=== PATIENT | female | born 1975 | race Caucasian/White ===

== ENCOUNTER 2017-09-10 05:15 | Emergency (ER) | payer OTHER ==
[~2017-09-10] VITALS: Ht 170.2 cm; Wt 83.9 kg
--- OUTSIDE RECORDS SUMMARY | ~2017-09-10 | XMS | Clinical Summary ---
Demographics + + + | Address | [address] | | | [place] [address] | + + + | Home Phone | | + + + | Preferred Language | Unknown | + + + | Marital Status | | + + + | Adventist Affiliation | Unknown | + + + | Race | Unknown | + + + | Ethnic Group | Unknown | + + + Author + + + | Author | [facility] | | | and [facility] | + + + | Organization | [facility] | | | and [facility] | + + + | Address | Unknown | + + + | Phone | Unavailable | + + + Support + + +---------+ + | Name | Relationship | Address | Phone | + + +---------+ + | Unkn,At Time Of | ECON | NA | | | Registration | | NA, | | + + +---------+ + Care Team Providers + +------+ + | Care Cable Tool Driller Name | Role | Phone | + +------+ + | No, Unknownpcp | PP | Unavailable | + +------+ + Allergies Not on File Current Medications Not on file Active Problems Not on file Social History + +-------+ +--------+------+ | Tobacco Use | Types | Packs/Day | Years | Date | | | | | Used | | + +-------+ +--------+------+ | Never Assessed | | | | | + +-------+ +--------+------+ + + + | Sex Assigned at | Date Recorded | | | | + + + | Not on file | | + + + Plan of Treatment + + + + + | Health Maintenance | Due Date | Last Done | Comments | + + + + + | Vaccine: | | | | | Dtap/Tdap/Td (1 - | 6 | | | | Tdap) | | | | + + + + + | CERVICAL CANCER | | | | | SCREENING (PAP EVERY | 8 | | | | 3 YEARS 21-64 ) | | | | + + + + + | Vaccine: Influenza | | | | | (Season Ended) | 8 | | | + + + + + Results Not on filefrom Last 3 Months"
--- OUTSIDE RECORDS SUMMARY | ~2017-09-10 | XMS | Clinical Summary ---
Demographics + + + | Address | [address] | | | [place] [address] | + + + | Home Phone | | + + + | Preferred Language | Unknown | + + + | Marital Status | | + + + | Jew Affiliation | Unknown | + + + | Race | Unknown | + + + | Ethnic Group | Unknown | + + + Author + + + | Author | [facility] | | | and [facility] | + + + | Organization | [facility] | | | and [facility] [...] Team Providers + +------+ + | Care Acetylene Operator Name | Role | Phone | + [...]
[2017-09-10] MEDS ORDERED: ZOLOFT50 MG PO (05:25)
[2017-09-10] MEDS ORDERED: FLONASE ALLERG9.9 ML NAS (05:26)
[2017-09-10] MEDS ORDERED: ZYRTEC-D TABLE1 EACH PO (05:26)
[2017-09-10] MEDS ORDERED: ZANTAC150 MG PO (05:27)
[2017-09-10] MEDS ORDERED: PRILOSEC OTC20 MG PO (05:27)
[2017-09-10] MEDS ORDERED: PROTONIX40 MG PO (07:12)
[2017-09-10] MEDS ORDERED: NORCO 5-325 TA1 EACH PO (07:12)
[2017-09-28] MEDS ORDERED: FISH OIL 1,0001 EAC2 NG (08:14)
[2017-09-28] MEDS ORDERED: MULTIVITAMINS1 EAC8 PO (08:14)
== END 2017-09-10 07:25 | disposition home or self-care (01) ==
LOC: ED 05:15
DX: R10.13 Epigastric pain (principal); Z79.899 Other long term (current) drug therapy
CPT/HCPCS: 76705; 80053; 81001; 83690; 85025; 96374; 96375; 99284; J2270; J2405; J7030